=== PATIENT | male | born 1960 | race Caucasian/White ===

== ENCOUNTER 2019-11-22 07:13 | Day surgery (SDC) | payer BC ==
[~2019-11-22 07:13] MED LIST: Lactated Ringers 1,000 ML IV SCH; Lidocaine 1%/Sod Bicarbonate in NS 8.4% 1 ML Syringe IDERM PRN; Sodium Chloride 0.9% 10 ML Syringe FLUSH PRN
[2019-11-22] MEDS ORDERED: Lidocaine 1% with EPINEPHrine 1:100,000 20 ML MDV ONE (07:21)
[2019-11-22] MEDS ORDERED: Bupivacaine 0.5%/EPINEPHrine 1:200,000 50 ML MDV ONE (07:21)
--- NOTE | 2019-11-22 08:28 | PCM.HP.2 ---
H&P History of Present Illness - General Date of Service: 11/22/19 Admit Problem/Dx: basal cell carcinoma of the scalp Source of Information: Patient History Limitations: Reports: No Limitations - History of Present Illness Other HPI/Comments: Mr. Conway was seen in clinic several weeks ago for a suspicious scalp lesion that was biopsied. Pathology shows basal cell carcinoma. He presents today for wide local excision. - Related Data Allergies/Adverse Reactions: Allergies Allergy/AdvReac Type Severity Reaction Status Date / Time clindamycin Allergy Cannot Verified 11/21/19 17:02 Remember Penicillins Allergy Hives Verified 11/21/19 17:02 Sulfa (Sulfonamide Allergy Cannot Verified 11/21/19 17:02 Antibiotics) Remember Tetracyclines Allergy Cannot Verified 11/21/19 17:02 Remember Home Medications: Home Meds Cholecalciferol (Vitamin D3) [Vitamin D3] 5,000 unit PO DAILY 11/21/19 [History] Lisinopril/Hydrochlorothiazide [Lisinopril-Hctz 10-12.5 mg Tab] 1 tab PO DAILY 11/21/19 [History] Multivitamin 1 tab PO DAILY 11/21/19 [History] Pravastatin Sodium [Pravastatin (Pravachol)] 40 mg PO DAILY 11/21/19 [History] Tamsulosin HCl 0.4 mg PO DAILY 11/21/19 [History] Past Medical History HEENT History: Reports: Allergic Rhinitis, Sinusitis Cardiovascular History: Reports: High Cholesterol, Hypertension Respiratory History: Reports: Bronchitis, Recurrent, Other (See Below) Other Respiratory History: COUGH Gastrointestinal History: Reports: None Genitourinary History: Reports: Other (See Below) Other Genitourinary History: PROSTATISM, [employer] History: Reports: None Musculoskeletal History: Reports: None Neurological History: Reports: None Psychiatric History: Reports: None Endocrine/Metabolic History: Reports: Vitamin D Deficiency Hematologic History: Reports: None Immunologic History: Reports: None Oncologic (Cancer) History: Reports: None Dermatologic History: Reports: Other (See Below) Other Dermatologic History: BASAL CELL CARCINOMA, ACTINIC KERATOSIS, SKIN LESION - Infectious Disease History Infectious Disease History: Reports: None - Past Surgical History Head Surgeries/Procedures: Reports: None HEENT Surgical History: Reports: None Cardiovascular Surgical History: Reports: None Respiratory Surgical History: Reports: None GI Surgical History: Reports: Bariatric Procedure Female Surgical History: Reports: None Male Surgical History: Reports: None Endocrine Surgical History: Reports: None Neurological Surgical History: Reports: None Musculoskeletal Surgical History: Reports: None Oncologic Surgical History: Reports: None H&P Review of Systems - Review of Systems: Review Of Systems: See Below General: Reports: No Symptoms HEENT: Reports: No Symptoms Pulmonary: Reports: No Symptoms Cardiovascular: Reports: No Symptoms Gastrointestinal: Reports: No Symptoms Genitourinary: Reports: No Symptoms Musculoskeletal: Reports: No Symptoms Skin: Reports: No Symptoms Psychiatric: Reports: No Symptoms Neurological: Reports: No Symptoms Hematologic/Lymphatic: Reports: No Symptoms Immunologic: Reports: No Symptoms Exam - Exam Exam: See Below - Vital Signs Vital Signs: Last Vital Signs Temp 36.8 C 11/22/19 07:20 Pulse 72 11/22/19 07:20 Resp 16 11/22/19 07:20 BP 162/87 H 11/22/19 07:20 Pulse Ox 95 11/22/19 07:20 Weight: 92.986 kg - Exam General: Alert, Oriented HEENT: Conjunctiva Clear, Other (1.5 cm ulcerative lesion at right anterior scalp) Sepsis Event Note - Focused Exam Vital Signs: Vital Signs Temp Pulse Resp BP Pulse Ox 11/22/19 07:20 36.8 C 72 16 162/87 H 95 Problem List Initiated/Reviewed/Updated: Yes Orders Last 24hrs: Active Orders 24 hr Category Date Time Status Peripheral IV Care [RC] . DIRECTED Care 11/22/19 00:01 Active Verify Patient Consent Obtain [RC] ASDIRECTED Care 11/22/19 00:01 Active Lactated Ringers [Ringers, Lactated] 1,000 ml Med 11/22/19 00:01 Active IV ASDIRECTED Lidocaine 1%/Sod Bicarbonate [Buffered Lidocaine 1% in Med 11/22/19 00:01 Active NS 8.4%] 0.25 ml IDERM ONETIME PRN Sodium Chloride 0.9% [Saline Flush] Med 11/22/19 00:01 Active 10 ml FLUSH ASDIRECTED PRN Medication Administration Instruction [OM.PC] Routine Oth 11/22/19 00:01 Ordered Peripheral IV Insertion Adult [OM.PC] Routine Oth 11/22/19 00:01 Ordered Medication Orders Lactated Ringer's (Ringers, Lactated) 1,000 mls @ 125 mls/hr IV ASDIRECTED VENUS Stop: 11/22/19 23:00 Lidocaine/Sodium Bicarbonate (Buffered Lidocaine 1% In Ns 8.4%) 0.25 ml IDERM ONETIME PRN PRN Reason: Prior to IV Start Stop: 11/22/19 18:00 Sodium Chloride (Saline Flush) 10 ml FLUSH ASDIRECTED PRN PRN Reason: Keep Vein Open Stop: 11/22/19 18:00 Assessment/Plan Comment:: basal cell carcinoma of scalp. Plan for wide local excision. - Mortality Measure Prognosis:: Good
--- NOTE | 2019-11-22 12:12 | PCM.PRNOTE ---
- Free Text/Narrative Note: Date: 11/22/2019 Operation: wide local excision of right anterior scalp basal cell carcinoma with local flap reconstruction Surgeon: Tom Gillespie MD Findings: right anterolateral scalp lesion measured about 2 x 2 cm. This was resected down to fascia, with a 5 mm margin circumferentially, leaving a quarter-sized defect. Frozen section was performed on the initial specimen which showed positive margin at the 12 o'clock position and involvement of the deep margin at the 1 o'clock to to 3 o'clock position. Additional tissue was taken and margins were reported negative. A local skin flap was raised to aid with closure of the defect. Detailed Report: The patient was taken to the operating room and placed in supine position. The operation was done under local anesthetic only. A 5 mm margin was marked around the lesion, and a 15 blade was used to incise the area circumferentially. This was excised down to the level of fascia. A 2-0 silk stitch was used to orient the superior portion of the specimen. Frozen section analysis was performed, with finding of positive margin at the 12 o'clock position and involvement of the deep margin near at the 1 o'clock to 3 o'clock range. Additional tissue was excised to capture the areas of positive involvement, and final margins were reported negative. A rhomboid flap was raised from the inferolateral aspect and brought into the center portion of the defect with minimal tension. Several deep dermal 3-0 vicryl sutures were placed to bring the wound edges together. Next, several interrupted 4-0 nylon sutures were placed at the level of the skin along the closure line for reinforcement. A dressing of xeroform, dry gauze and tegaderm was applied. The patient tolerated the procedure well.
== END 2019-11-22 11:55 | disposition home or self-care (01) ==
LOC: JD.SDS 07:13
PROVIDERS: ATTEND Surgery
DX: C44.41 Basal cell carcinoma of skin of scalp and neck (principal); I10 Essential (primary) hypertension; E78.00 Pure hypercholesterolemia, unspecified; E78.2 Mixed hyperlipidemia; E55.9 Vitamin D deficiency, unspecified; Z88.0 Allergy status to penicillin; Z88.1 Allergy status to other antibiotic agents; Z88.2 Allergy status to sulfonamides; Z88.8 Allergy status to other drugs, medicaments and biological substances; Z79.899 Other long term (current) drug therapy
CPT/HCPCS: 14020; J3490